=== PATIENT | female | born 1990 | race Caucasian/White ===

== ENCOUNTER 2020-04-20 21:40 | Inpatient (IN) ==
[2020-04-21] MEDS ORDERED: OXYTOCIN 30 UNITS/500 ML BAG IV PRN ×2 (00:16→05:13)
[2020-04-21] MEDS ORDERED: LACTATED RINGER'S 1,000 ML IV PRN (00:16)
[2020-04-21 00:47] LABS: Hematocrit (blood only) 37.1 % (37-47); Hemoglobin 13.2 g/dL (12.0-16.0); Mean Corpuscular Hemoglobin 33.2 pg (25-34); Mean Corpuscular Hgb Conc 35.6 g/dL (32-36); Mean Corpuscular Volume 93.5 fL (80-100); Platelet Count 179 K/uL (130-400); RDW Coefficient of Variation 13.2 % (11.5-14.5); RDW Standard Deviation 45.6 fL (36.4-46.3); Red Blood Count 3.97 M/uL (4.2-5.4); White Blood Count 13.26 K/uL (4.8-10.8)
[2020-04-21] MEDS ORDERED: SODIUM CHLORIDE 0.9% INJ 10 ML VIAL ONE (01:08)
[2020-04-21] MEDS ORDERED: BUPIVACAINE 0.25% 30 ML VIAL ONE (01:08)
[2020-04-21] MEDS ORDERED: ePHEDrine sulfate 50 MG/ML AMP ONE (01:08)
[2020-04-21] MEDS ORDERED: fentaNYL 2MCG/ML ROPIVACAINE 1.25MG/ML 100 ML BAG EPI ONE (01:09)
[2020-04-21] MEDS ORDERED: fentaNYL citrate 100 MCG/2 ML VIAL ONE (01:09)
[2020-04-21] MEDS ORDERED: diphenhydrAMINE 50 MG/ML VIAL IV PRN (02:10)
[2020-04-21] MEDS ORDERED: ePHEDrine sulfate 50 MG/ML AMP IV PRN (02:10)
[2020-04-21] MEDS ORDERED: NALOXONE HCL 1 MG in SODIUM CHLORIDE 0.9% 1000ML 1,000 ML IV PRN (02:10)
[2020-04-21] MEDS ORDERED: NALOXONE HCL 0.4 MG/1 ML VIAL/CARP IV PRN (02:10)
[2020-04-21] MEDS ORDERED: fentaNYL 2MCG/ML ROPIVACAINE 1.25MG/ML 100 ML BAG EPI PRN (02:10)
[2020-04-21] MEDS ORDERED: ONDANSETRON INJ 2 MG/ML 2 ML VIAL IV PRN (02:10)
[2020-04-21] MEDS ORDERED: PROMETHAZINE HCL 6.25 MG in SODIUM CHLORIDE 0.9% 50 ML IV PRN (02:10)
--- NOTE | 2020-04-21 02:10 | Anesthesiology Consultation ---
Date of Service April 21, 2020 Assessment & Plan (1) Encounter for pre-operative examination: Chart Review Chart Review: Patient NOT seen in Pre Admission Testing and Acceptable Risk for Labor Epidural Consults Requested none ASA ASA2 Proposed Anesthesia Anesthesia Type: Labor Epidural Risk / Benefits Reviewed With: PT / POA / Parent / Guardian, Accepts Plan and Informed Consent Obtained History Height/Weight Height: 5 ft 5 in Weight: 82.554 kg Allergies Allergy/AdvReac Type Severity Reaction Status Date / Time No Known Drug Allergies Allergy Unknown Verified 04/20/20 22:26 Medications Home Medications Medication Instructions Recorded Confirmed Last Taken prenat.vits,benny,tyj-vbly-azcqc 1 tab PO DAILY 09/05/19 04/20/20 04/20/20 08:00 Active Medications Generic Name Dose Route Start Last Admin Trade Name Freq PRN Reason Stop Dose Admin Lactated Ringer's 1,000 mls @ 125 mls/hr 04/21/20 00:16 04/21/20 01:40 Lr IV 04/23/20 00:15 125 mls/hr .Q8H PRN Infusion L&D Protocol Protocol NPO Date Last Intake of Fluids: 04/21/20 Time Last Intake of Fluids: 01:00 Date Last Intake of Solids: 04/20/20 Time Last Intake of Solids: 21:00 Past Medical History Medical History Hx of abnormal cervical Pap smear Hx of varicella Exercise / Class Metabolic Activity II 4-5 Yardwork/Stairs/Walk up hill Past Family History Family History Other No pertinent family history Past Surgical History Surgical History S/P LEEP Past Anesthesia History No Hx of Anesthesia Complications and No Family Hx of Anesthesia Complications History of PONV No Hx of PONV and No Hx of Motion Sickness Social History Smoking Status: Never smoker Hx Alcohol Use: No Hx Substance Use: No Physical Exam Vital Signs Last Vital Signs Temp 36.8 C 04/21/20 02:00 Pulse 88 04/21/20 02:08 Resp 20 04/21/20 02:05 BP 108/59 L 04/21/20 02:08 Pulse Ox 96 04/21/20 02:06 ENMT Mouth: no dentition abnormality Thyromental Distance: > or= 3.5 Finger Breadths Mallampati Class: II Neck normal visual inspection Respiratory normal respiratory effort Auscultation: lungs clear to auscultation bilaterally Cardiovascular Rate/Rhythm: regular rate and regular rhythm Psychiatric Orientation: alert Testing Laboratory Results 04/21/20 00:40
--- NOTE | 2020-04-21 03:22 | History & Physical Report ---
Date of Service April 21, 2020 Assessment & Plan (1) with 39 completed weeks gestation: (2) Normal labor: Admission and Anticipated Discharge Date Admission Date: April 21, 2020 Patient was admitted and eventually received epidural. Had srom with mec stained fluid. Making spontaneous progress. Plan expectant management. pitocin if indicated. fetus category one. anticipate . History of Present Illness Chief Complaint: contractions Primary Care Provider: NO PCP Patient is a at 39 5/7 weeks who presents to labor and delivery complaining of contractions. no lof/vb. +fm. Last seen in the office yesterday and cx not checked. checked two weeks ago and closed. uncomplicated. Labs--O+/ab-/ri/rprnr/hepb-/hiv-/gc/ct-/cf/sma-/panorama low risk/ gbs neg/gtt at 16 nl/ 28 week 2 hr gtt neg. Allergies Allergy/AdvReac Type Severity Reaction Status Date / Time No Known Drug Allergies Allergy Unknown Verified 04/20/20 22:26 Home Medications Medication Instructions Recorded Confirmed Type prenat.vits,benny,ogb-bpjf-jqhnr 1 tab PO DAILY 09/05/19 04/20/20 History Patient History Medical History Hx of abnormal cervical Pap smear Hx of varicella Surgical History S/P LEEP Family History Other No pertinent family history Social History (Updated 09/05/19 @ 15:11 by Lourdes Mao) Smoking Status: Never smoker Hx Alcohol Use: No Hx Substance Use: No Preferred Language: Luxembourgish Communication Ability: Effective Beliefs That Will Affect Care: None marital status: marital status details: Pedro Pablo Miranda (30) [phone] Current Living Situation: Spouse Current Living Situation Comment: lives with spouse and 2 dogs current occupational status: employed current occupation: [employer] Other Information That Helps Us Care for You: No Feels Safe at Home: Yes Safety Concerns: Feels Safe At This Time Assistive Devices: None 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 Review of Systems All systems reviewed & are unremarkable except as noted in HPI & below Physical Exam Constitutional: WD/WN, vitals as above Gastrointestinal (Abdomen): soft, gravid, nt Psychiatric: A+Ox3, euthymic affect Genitourinary: cx--initial exam by nursing and changed to , progressed to srom--mec toco--q3min efm--145 with mod variability, early decels with some contractions. Results & Data ([facility]) Vital Signs (Past 12 Hours) Vital Signs Temp Pulse Resp BP Pulse Ox 04/21/20 03:16 87 94 04/21/20 03:15 78 108/58 L 04/21/20 03:11 82 92 04/21/20 03:06 76 93 04/21/20 03:01 74 93 04/21/20 02:59 86 110/56 L 04/21/20 02:56 76 93 04/21/20 02:51 75 94 04/21/20 02:46 80 94 04/21/20 02:45 83 114/60 04/21/20 02:41 91 H 94 04/21/20 02:36 83 94 04/21/20 02:31 83 94 04/21/20 02:29 83 20 111/63 04/21/20 02:26 76 97 04/21/20 02:25 36.8 C 04/21/20 02:21 80 96 04/21/20 02:16 84 96 04/21/20 02:15 20 04/21/20 02:14 83 109/55 L 04/21/20 02:11 85 96 04/21/20 02:10 36.9 C 20 04/21/20 02:08 88 108/59 L 04/21/20 02:06 86 96 04/21/20 02:05 20 04/21/20 02:01 89 115/55 L 96 04/21/20 02:00 36.8 C 20 04/21/20 01:59 92 H 111/55 L 04/21/20 01:57 88 126/61 04/21/20 01:56 95 H 97 04/21/20 01:55 85 20 139/62 04/21/20 01:53 102 H 139/79 89 L 04/21/20 01:51 104 H 132/71 87 L 04/21/20 01:46 95 H 126/74 93 04/21/20 01:23 233 H 67 L 04/21/20 01:00 20 04/20/20 22:58 36.7 C 20 04/20/20 22:57 78 118/64 04/20/20 21:55 37.1 C 04/20/20 21:49 77 130/70 Coding Level of Care Code None Diagnoses with 39 completed weeks gestation Z3A.39 Normal labor O80; Z37.9
--- NOTE | 2020-04-21 03:39 | Labor Progress Brief Note ---
Date of Service April 21, 2020 Subjective comfortable Assessment & Plan (1) Normal labor: Admission and Anticipated Discharge Date Admission Date: April 21, 2020 begin second stage. fetus reassuring. anticipate . Physical Exam Constitutional: WD/WN, vitals as above Psychiatric: A+Ox3, euthymic affect Genitourinary: cx--c/c/+1-2 toco--q2-3min efm--145 with mod variability, early/variable with contractions Results & Data ([facility]) Vital Signs (Past 12 Hours) Vital Signs Temp Pulse Resp BP Pulse Ox 04/21/20 03:36 96 H 96 04/21/20 03:31 80 94 04/21/20 03:29 81 107/58 L 04/21/20 03:26 76 94 04/21/20 03:21 79 94 04/21/20 03:16 87 94 04/21/20 03:15 78 108/58 L 04/21/20 03:11 82 92 04/21/20 03:06 76 93 04/21/20 03:01 74 93 04/21/20 02:59 86 110/56 L 04/21/20 02:56 76 93 04/21/20 02:51 75 94 04/21/20 02:46 80 94 04/21/20 02:45 83 114/60 04/21/20 02:41 91 H 94 04/21/20 02:36 83 94 04/21/20 02:31 83 94 04/21/20 02:29 83 20 111/63 04/21/20 02:26 76 97 04/21/20 02:25 36.8 C 04/21/20 02:21 80 96 04/21/20 02:16 84 96 04/21/20 02:15 20 04/21/20 02:14 83 109/55 L 04/21/20 02:11 85 96 04/21/20 02:10 36.9 C 20 04/21/20 02:08 88 108/59 L 04/21/20 02:06 86 96 04/21/20 02:05 20 04/21/20 02:01 89 115/55 L 96 04/21/20 02:00 36.8 C 20 04/21/20 01:59 92 H 111/55 L 04/21/20 01:57 88 126/61 04/21/20 01:56 95 H 97 04/21/20 01:55 85 20 139/62 04/21/20 01:53 102 H 139/79 89 L 04/21/20 01:51 104 H 132/71 87 L 04/21/20 01:46 95 H 126/74 93 04/21/20 01:23 233 H 67 L 04/21/20 01:00 20 04/20/20 22:58 36.7 C 04/20/20 22:57 78 118/64 04/20/20 21:55 37.1 C 04/20/20 21:49 77 130/70 Coding Level of Care Code None Diagnoses Normal labor O80; Z37.9
[2020-04-21] MEDS ORDERED: METHYLERGONOVINE MALEATE 0.2 MG/ML AMP ONE (04:56)
[2020-04-21] MEDS ORDERED: oxyCODONE/ACETAMINOPHEN 5mg/325mg TAB PO PRN (05:07)
[2020-04-21] MEDS ORDERED: ACETAMINOPHEN 325 MG TAB PO PRN (05:07)
--- NOTE | 2020-04-21 05:12 | Delivery Summary ---
Vaginal Delivery Summary Date of Service April 21, 2020 Pre-operative Diagnosis: at 39 weeks normal labor Post-operative Diagnosis: same meconium Procedure: epidural second degree lac and repair EBL: 400cc Anesthesia: epidural Procedure: The patient pushed for 50 min to deliver a viable female in nita position. The nose and mouth were bulb suctioned on the perineum and the rest of the infant was then delivered without difficulty. The baby was vigorous. The nose and mouth were again bulb suctioned and the was placed in the maternal abdomen for drying and attention. Cord was clamped and cut at one minute of life. Cord blood and segment obtained. Placenta delivered spontaneous, intact with a three vessel cord. Cervix/sulci/rectum were intact. A second degree perineal laceration was repaired in the normal standard fashion. Hemostasis obtained with dilute pitocin, IM methergine and fundal massage. Apgars were 8/9. Mother and baby doing well at the end of the delivery. Vaginal Delivery Summary and 2nd [place] [facility] [place] Charge Delivery Type Details: and 2nd Degree LAC
[2020-04-21] MEDS ORDERED: bisacodyL 10 MG SUPP PR PRN (05:13)
[2020-04-21] MEDS ORDERED: HYDROCORTISONE ACETATE 25 MG SUPP PR PRN (05:13)
[2020-04-21] MEDS ORDERED: DIPHTHERIA/TETANUS/PERTUSSIS 0.5 ML SYR/VIAL IM ONE (05:13)
[2020-04-21] MEDS ORDERED: BENZOCAINE 20% AER SPR 82.5 GM CAN EXT PRN (05:13)
[2020-04-21] MEDS ORDERED: METHYLERGONOVINE MALEATE 0.2 MG/ML AMP IM ONE (05:13)
[2020-04-21] MEDS ORDERED: SUPERCREAM 0.870% 15 GM JAR EXT PRN (05:13)
[2020-04-21] MEDS: IBUPROFEN 600 MG TAB PO PRN ×4 (06:10→21:56)
[2020-04-21] MEDS: PRENATAL VITAMIN 1 TAB PO SCH (08:08)
[2020-04-21] MEDS: DOCUSATE SODIUM 100 MG CAP PO SCH ×2 (08:08→21:56)
--- NOTE | 2020-04-21 08:20 | Anesthesia Procedure Note ---
Date of Service April 21, 2020 Anesthesia Post Epidural Note Vital Signs Vital Signs: Temp Pulse Resp BP Pulse Ox 36.7 C 93 H 20 96/55 L 94 04/21/20 03:55 04/21/20 06:59 04/21/20 06:59 04/21/20 06:59 04/21/20 04:51 Notes Mental Status: alert / awake / arousable and participated in evaluation Nausea / Vomiting: adequately controlled Pain: adequately controlled Airway Patency, RR, SpO2: stable & adequate BP & HR: stable & adequate Hydration State: stable & adequate Neuraxial Anesthesia: was administered and sensory block is resolving Anesthetic Complications: no major complications apparent and Pt Satisfied with anesthetic care Epidural: Removed without complications and With tip intact Notes: Epidural site clean, dry and intact. No signs of edema, erythema or bruising at insertion site. Pt instructed to request anesthesia if she has residual lower extremity numbness or if she develops lower extremity pain or weakness, back pain or headache.
[2020-04-22] MEDS: IBUPROFEN 600 MG TAB PO PRN ×3 (05:48→21:00)
[2020-04-22 06:27] LABS: Hematocrit (blood only) 35.7 % (37-47)
--- NOTE | 2020-04-22 06:35 | Obstetrical Progress Note ---
Date of Service April 22, 2020 Assessment & Plan (1) with 39 completed weeks gestation: day #1 the patient is doing well ambulating well we discussed possible discharge later in the evening versus tomorrow morning Subjective Ambulation: ambulating normally Voiding: no voiding problems Passing Gas:: Yes Diet Tolerance:: regular diet Lochia:: Small Feeding Type:: breast feeding Current Pain Level(1-10): 2 Physical Exam Constitutional WD/WN, vitals as above Genitourinary normal external appearance ext neg Results & Data ([facility]) Vital Signs (Past 12 Hours) Vital Signs Temp Pulse Resp BP Pulse Ox 04/22/20 03:50 97.9 F 76 18 113/72 04/21/20 23:15 98.4 F 79 18 102/72 04/21/20 19:45 97.7 F 81 18 114/67 97
[2020-04-22] MEDS: PRENATAL VITAMIN 1 TAB PO SCH (08:16)
[2020-04-22] MEDS: DOCUSATE SODIUM 100 MG CAP PO SCH ×2 (08:16→21:00)
[2020-04-22] MEDS ORDERED: bisacodyL 5 MG TABEC PO SCH (20:00)
[2020-04-23] MEDS: IBUPROFEN 600 MG TAB PO PRN ×2 (00:45→08:20)
--- NOTE | 2020-04-23 07:42 | Obstetrical Progress Note ---
Date of Service <Mela Dolores Auguste DO - Last Filed: 04/23/20 07:42> April 23, 2020 Assessment & Plan <Mela Dolores Auguste DO - Last Filed: 04/23/20 07:42> (1) state: PPD #2 - PNL: Rh pos, RI, GBS neg, COVID neg - Feels well today. Eating well, voiding well, ambulating well. - Pain well controlled with ibuprofen 600mg Q4H PRN - Routine care -- OOB, ambulation, diet progression as tolerated - After discharge will have 6 week follow-up with Dr. Salcido. - Plan for d/c home today. Subjective <Melasilva Auguste DO - Last Filed: 04/23/20 07:42> Ale Miranda is a 29 y/o female who is PPD #2 following spontaneous vaginal delivery at 39 +5 weeks. She reports feeling well overall this morning. Minimal abdominal cramping and 2/10 pain well managed on analgesics. Voiding without dysuria. Tolerating meals overnight without difficulty. Patient has been able to ambulate some. She is passing gas; no bowel movement. Has persistent lochia with some improvement this morning. Currently . Patient does note a slight headache behind her right eye, slightly exacerbated with laying supine; controlled with Tylenol and Motrin; similar to hx of headaches. Review of Systems Denies fever or chills. Denies shortness of breath or cough. Denies chest pain. Denies breast pain. Denies dysuria. Denies leg pain or leg swelling. Denies headache or changes in vision. Physical Exam <Mela Auguste DO - Last Filed: 04/23/20 07:42> General: Alert, oriented. No acute distress. Cardiac: Regular rate and rhythm. No murmurs. Respiratory: Clear to auscultation bilaterally a/p, no wheezes/rales/rhonchi. No increased work of breathing. Symmetrical chest rise. No respiratory distress. Abdomen: Soft, nontender, nondistended. Bowel sounds present. Uterus: Uterine fundus firm, palpable 2 cm below umbilicus. Lower Extremities: No lower extremity edema or swelling. No deep calf pain. Estrella's negative bilaterally. Results & Data ([facility]) <Mela Auguste DO - Last Filed: 04/23/20 07:42> Vital Signs (Past 12 Hours) Vital Signs Temp Pulse Resp BP Pulse Ox 04/22/20 23:15 36.7 C 79 18 111/75 96 <Ulysses Pro MD - Last Filed: 04/23/20 08:20> Co-Signing Physician Notes Patient seen and evaluated and agree with the above findings and plan. Doing well. Stable for discharge. Resident Activity Tracking <Mela Auguste DO - Last Filed: 04/23/20 07:42> Resident Involvement: Resident Care Provided Care Provided: OB Delivery
[2020-04-23] MEDS: PRENATAL VITAMIN 1 TAB PO SCH (08:17)
[2020-04-23] MEDS: DOCUSATE SODIUM 100 MG CAP PO SCH (08:17)
== END 2020-04-23 11:39 | disposition home or self-care (01) | DRG 807 ==
LOC: OPB 21:40 → 4S1 21:41 → 4S2 04-21 07:22

== ENCOUNTER 2023-08-14 08:57 | Inpatient (IN) ==
[2023-08-14] MEDS ORDERED: LIDOCAINE 1% LOCAL 20 ML VIAL INFIL PRN (09:35)
--- NOTE | 2023-08-14 09:41 | History & Physical Report ---
Date of Service August 14, 2023 Assessment & Plan (1) Group B streptococcal infection during : (2) Encounter for supervision of normal in multigravida: Plan 32 yo at 39 3/7 wga presents in labor VSS Fetus cat 1 Labor - augment prn GBS+, will start pcn desires epidural History of Present Illness Chief Complaint: ctx Primary Care Provider: Harrison Cordero DO 32 yo at 39 3/7 wga presents w/ ctx increasing in frequency and intensity. Started around 430 and then around 6am got q5m. Denies LOF, VB. 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 current hx LEEP denies hx stis Allergies Allergy/AdvReac Type Severity Reaction Status Date / Time No Known Drug Allergies Allergy Unknown Verified 08/07/23 13:40 Home Medications Medication Instructions Recorded Confirmed Type vit no.95-ferrous 1 tab PO DAILY 08/14/23 08/14/23 History fumarate 28 mg-folic acid 800 mcg tablet () Patient History Medical History (Updated 07/26/23 @ 13:14 by Palma Wheatley RN) Seasonal allergies History of chicken pox Hx of abnormal cervical Pap smear Surgical History (Updated 08/14/23 @ 09:13 by Roya Mejia RN) S/P loop electrosurgical excision procedure H/O eye surgery laser for glaucoma H/O bilateral breast implants S/P cryotherapy of skin lesion cervix for dysplasia Family History Grandmother (Maternal) Throat cancer Mother Zechariah's disease Father Healthy adult male Other No pertinent family history Denies family history of Ovarian cancer Prostate cancer Breast cancer Colorectal cancer Social History (Updated 01/01/23 @ 09:56 by Fabiana Galvez) Smoking Status: Never smoker Do You Dip or Chew Tobacco: No; Hx Alcohol Use: No Hx Substance Use: No Preferred Language: Ugandan Communication Ability: Effective Visual Impairment: No Limitations Beliefs That Will Affect Care: None marital status: marital status details: Pedro Pablo Miranda (33) [phone] Current Living Situation: Spouse and Family Current Living Situation Comment: lives with spouse, child and 2 dogs current occupational status: employed 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 Feels Safe at Home: Yes Assistive Devices: None Physical Exam Genitourinary: OB Exam Abdomen: + vertex and + estimated weight (8-9) Manual OB Exam: + cervical dilation (4-5), + cervical effacement 90% and + station -2 OB Exam Monitor Tracing: + external FHT monitor used, + external uterine monitor used (q3-4) and + category I (140-145/mod/+accel/-decel) Results & Data Vital Signs (Past 12 Hours) Vital Signs Temp Pulse Resp BP 08/14/23 09:26 83 101/61 08/14/23 09:07 20 08/14/23 09:07 98.2 F 20 Laboratory Results OB Labs: Blood Type O Positive 01/08/23 Antibody Screen NEGATIVE 01/08/23 Hemoglobin 11.7 g/dl (12.0-16.0) L 05/23/23 Hematocrit 33.3 % (37.0-47.0) L 05/23/23 Mean Corpuscular Volume 89.0 fL (80.0-100.0) 01/08/23 Platelet Count 271 K/uL (130-400) 01/08/23 Rubella IgG Antibody Immune (Immune) 01/08/23 Rapid Plasma Reagin Nonreactive (Nonreactive) 01/08/23 Hepatitis B Surface Antigen Neg (Neg) 09/09/19 Hepatitis B Surface Antigen. NON-REACTIVE (NON-REACTIVE) 01/08/23 Hepatitis C Antibody (EIA) NON-REACTIVE (NON-REACTIVE) 01/08/23 HIV (1&2) Ab and P24 Ag, 4th Gener Neg (Neg) 09/09/19 HIV (1&2) Ag and Ab Confirmation NON-REACTIVE (NON-REACTIVE) 01/08/23 Glucose 1 Hour 50 gm Load 132 mg/dl (70-130) H 01/30/20 Maternal Serum Alpha Fetoprotein 29.9 ng/mL 03/06/23 OB Optional Labs: Chlamydia trachomatis RNA Not Detected (NotDetected) 01/08/23 Neisseria gonorrhoeae RNA Not Detected (NotDetected) 01/08/23 Thyroid Stimulating Hormone (TSH) 2.615 uIu/ml (0.300-4.500) 07/04/23 Alpha Fetoprotein Triple Screen SEE NOTE 03/06/23 Labs Reviewed: (-) CF/SMA last Horizon 14-negative--mln cfdna-low risk--mln afp neg--akh GBS+ Diagnostic Findings post plac Coding Level of Care Code None Diagnoses Group B streptococcal infection during O98.819; B95.1 Encounter for supervision of normal in multigravida Z34.80
[2023-08-14] MEDS: LACTATED RINGER'S 1,000 ML IV PRN (09:46)
[2023-08-14] MEDS: PENICILLIN GK 6 MU in DEXTROSE 5% 250 ML IV STA (10:08)
[2023-08-14 10:15] LABS: Hematocrit (blood only) 35.9 % (37.0-47.0); Hemoglobin 12.4 g/dl (12.0-16.0); Mean Corpuscular Hemoglobin 32.4 pg (25.0-34.0); Mean Corpuscular Hgb Conc 34.5 g/dL (32.0-36.0); Mean Corpuscular Volume 93.7 fL (80.0-100.0); Mean Platelet Volume 11.1 fL (9.4-12.4); Platelet Count 163 K/uL (130-400); RDW Coefficient of Variation 13.2 % (11.5-14.5); RDW Standard Deviation 45.6 fL (36.4-46.3); Red Blood Count 3.83 M/uL (4.20-5.40); White Blood Count 11.15 K/ul (4.8-10.8)
--- NOTE | 2023-08-14 10:29 | Anesthesiology Consultation ---
Date of Service August 14, 2023 Assessment & Plan Chart Review Chart Review: Acceptable Risk for Labor Epidural Consults Requested none ASA ASA2 Proposed Anesthesia Anesthesia Type: Labor Epidural Risk / Benefits Reviewed With: PT / POA / Parent / Guardian, Accepts Plan and Informed Consent Obtained History Allergies Allergy/AdvReac Type Severity Reaction Status Date / Time No Known Drug Allergies Allergy Unknown Verified 08/07/23 13:40 Medications Home Medications Medication Instructions Recorded Confirmed Last Taken vit no.95-ferrous 1 tab PO DAILY 08/14/23 08/14/23 08/12/23 09:00 fumarate 28 mg-folic acid 800 mcg tablet () Active Medications Generic Name Dose Route Start Last Admin Trade Name Freq PRN Reason Stop Dose Admin Lactated Ringer's 1,000 mls @ 125 mls/hr 08/14/23 09:35 08/14/23 09:46 Lr IV 08/16/23 09:34 999 mls/hr .Q8H PRN Administration L&D Protocol Protocol Past Medical History Medical History Seasonal allergies History of chicken pox Hx of abnormal cervical Pap smear Exercise / Class Metabolic Activity II 4-5 Yardwork/Stairs/Walk up hill Past Family History Family History Grandmother (Maternal) Throat cancer Mother Zechariah's disease Father Healthy adult male Other No pertinent family history Denies family history of Ovarian cancer Prostate cancer Breast cancer Colorectal cancer Past Surgical History Surgical History S/P loop electrosurgical excision procedure H/O eye surgery laser for glaucoma H/O bilateral breast implants S/P cryotherapy of skin lesion cervix for dysplasia Past Anesthesia History No Hx of Anesthesia Complications and No Family Hx of Anesthesia Complications History of PONV No Hx of PONV and No Hx of Motion Sickness Social History Smoking Status: Never smoker Do You Dip or Chew Tobacco: No Hx Alcohol Use: No Hx Substance Use: No Physical Exam Vital Signs Last Vital Signs Temp 98.2 F 08/14/23 09:07 Pulse 83 08/14/23 09:26 Resp 20 08/14/23 09:07 BP 101/61 08/14/23 09:26 ENMT Mouth: no dentition abnormality Thyromental Distance: > or= 3.5 Finger Breadths Mallampati Class: II Neck normal visual inspection Respiratory normal respiratory effort Auscultation: lungs clear to auscultation bilaterally Cardiovascular Rate/Rhythm: regular rate and regular rhythm Testing Laboratory Results 08/14/23 09:45
[2023-08-14] MEDS ORDERED: SODIUM CHLORIDE 0.9% PF INJ 10 ML VIAL EPI PRN (10:55)
[2023-08-14] MEDS ORDERED: NALBUPHINE HCL 5 MG in SYRINGE 0 ML IV PRN (10:55)
[2023-08-14] MEDS ORDERED: NALOXONE HCL 0.4 MG/1 ML VIAL/CARP IV PRN (10:55)
[2023-08-14] MEDS ORDERED: NALOXONE HCL 1 MG in SODIUM CHLORIDE 0.9% 1,000 ML IV PRN (10:55)
[2023-08-14] MEDS ORDERED: diphenhydrAMINE 50 MG/ML VIAL IV PRN (10:55)
[2023-08-14] MEDS ORDERED: ePHEDrine sulfate 50 MG/ML AMP IV PRN (10:55)
[2023-08-14] MEDS ORDERED: fentaNYL citrate PF 100 MCG/2 ML VIAL EPI PRN (10:55)
[2023-08-14] MEDS ORDERED: BUPIVACAINE 0.25% PF 30 ML VIAL EPI PRN (10:55)
[2023-08-14] MEDS ORDERED: LIDOCAINE 2% MPF LOCAL 5 ML VIAL EPI PRN (10:55)
[2023-08-14] MEDS ORDERED: ROPIVACAINE 0.5% PF 5 MG/ML 20 ML VIAL EPI PRN (10:55)
[2023-08-14] MEDS: LIDOCAINE 2%/EPINEPHRINE 1:200,000 20 ML PF ONE (10:59)
[2023-08-14] MEDS: fentANYL 2 MCG/ML BUPIVacaine 0.125%-NSS 100ML BAG ONE (11:00)
[2023-08-14] MEDS: BUPIVACAINE 0.25% PF 30 ML VIAL ONE (11:00)
[2023-08-14] MEDS ORDERED: NURSING L&D Epidural Breakthrough Pain Update ONE (11:25)
[2023-08-14] MEDS: fentaNYL citrate PF 100 MCG/2 ML VIAL ONE (12:02)
[2023-08-14] MEDS: ePHEDrine sulfate 50 MG/ML AMP ONE (12:02)
[2023-08-14] MEDS: BUPIVACAINE 0.25% PF 30 ML VIAL EPI STA (12:03)
[2023-08-14] MEDS: fentaNYL citrate PF 100 MCG/2 ML VIAL EPI STA (12:03)
[2023-08-14] MEDS: SODIUM CHLORIDE 0.9% PF INJ 10 ML VIAL ONE (12:03)
[2023-08-14] MEDS: LIDOCAINE 2%/EPINEPHRINE 1:200,000 20 ML PF EPI STA (12:03)
[2023-08-14] MEDS: SODIUM CHLORIDE 0.9% PF INJ 10 ML VIAL EPI STA (12:03)
[2023-08-14] MEDS: PENICILLIN GK 3 MU in DEXTROSE 5% 100 ML IV PRN (13:50)
--- NOTE | 2023-08-14 14:22 | Labor Progress Brief Note ---
Date of Service August 14, 2023 Subjective comfortable w/ epidural Assessment & Plan (1) Group B streptococcal infection during : (2) Encounter for supervision of normal in multigravida: Plan 32 yo at 39 3/7 wga presents in labor VSS Fetus cat 1 Labor - s/p arom, pit prn GBS+, pcn ordered epidural in place Admission and Anticipated Discharge Date Admission Date: August 14, 2023 Physical Exam Genitourinary: Manual OB Exam: + cervical dilation (6-7), + cervical effacement 90%, + station -1 and + amniotic fluid (arom) OB Exam Monitor Tracing: + external FHT monitor used, + external uterine monitor used (q3-5) and + category I (120/mod/+accel/-decel) Results & Data Vital Signs (Past 12 Hours) Vital Signs Temp Pulse Resp BP Pulse Ox 08/14/23 14:17 62 99 08/14/23 14:12 68 99 08/14/23 14:08 68 103/59 L 08/14/23 14:07 63 99 08/14/23 14:02 63 100 08/14/23 14:00 67 94/53 L 08/14/23 13:57 75 99 08/14/23 13:55 74 85/54 L 08/14/23 13:53 76 89/53 L 08/14/23 13:52 71 97/57 L 99 08/14/23 13:47 82 98 08/14/23 13:42 67 100 08/14/23 13:37 65 90/50 L 99 08/14/23 13:32 68 100 08/14/23 13:27 65 100 08/14/23 13:22 68 99 08/14/23 13:17 70 97 08/14/23 13:12 62 96 08/14/23 13:07 73 98 08/14/23 13:06 73 84/54 L 08/14/23 13:02 78 98 08/14/23 12:57 87 98 08/14/23 12:53 63 89/55 L 08/14/23 12:52 62 97 08/14/23 12:46 63 97 08/14/23 12:42 70 97 08/14/23 12:37 86 97 08/14/23 12:36 82 84/53 L 08/14/23 12:32 69 96 08/14/23 12:27 70 96 08/14/23 12:22 60 94/57 L 08/14/23 12:21 65 95 08/14/23 12:16 73 96 08/14/23 12:12 76 95 08/14/23 12:09 68 94 08/14/23 12:07 69 95 08/14/23 12:06 67 95/54 L 08/14/23 12:02 66 94 08/14/23 12:00 68 94 08/14/23 11:57 77 95 08/14/23 11:53 77 94 08/14/23 11:52 71 95 08/14/23 11:47 66 100/56 L 95 08/14/23 11:46 67 94 08/14/23 11:42 68 08/14/23 11:42 71 91/54 L 95 08/14/23 11:39 71 94 08/14/23 11:37 76 94 08/14/23 11:36 92/54 L 08/14/23 11:33 68 94 08/14/23 11:32 75 94 08/14/23 11:31 71 95/52 L 08/14/23 11:28 78 94 08/14/23 11:27 68 103/62 95 08/14/23 11:22 71 96 08/14/23 11:21 61 87/51 L 08/14/23 11:17 69 08/14/23 11:17 69 90/54 L 95 08/14/23 11:12 71 95 08/14/23 11:10 73 87/49 L 08/14/23 11:08 90/54 L 08/14/23 11:07 72 96 08/14/23 11:06 75 87/49 L 08/14/23 11:04 80 93/51 L 08/14/23 11:02 94 08/14/23 11:02 75 08/14/23 11:02 74 88/50 L 95 08/14/23 11:00 77 95/51 L 08/14/23 10:58 82 90/55 L 08/14/23 10:57 78 08/14/23 10:57 78 90/51 L 96 08/14/23 10:56 80 82/46 L 08/14/23 10:55 81 93/51 L 08/14/23 10:53 76 116/54 L 08/14/23 10:52 80 97 08/14/23 10:50 77 101/61 08/14/23 10:48 76 102/63 08/14/23 10:47 83 96 08/14/23 10:46 84 110/65 08/14/23 10:44 91 H 109/65 08/14/23 10:42 82 109/66 97 08/14/23 10:37 86 99 08/14/23 10:32 82 99 08/14/23 09:26 83 101/61 08/14/23 09:12 98.2 F 20 08/14/23 09:07 20 08/14/23 09:07 98.2 F 20 Coding Level of Care Code None Diagnoses Group B streptococcal infection during O98.819; B95.1 Encounter for supervision of normal in multigravida Z34.80
[2023-08-14] MEDS: ONDANSETRON INJ 2 MG/ML 2 ML VIAL IV PRN (15:02)
[2023-08-14] MEDS: fentANYL 2 MCG/ML BUPIVacaine 0.125%-NSS 100ML BAG EPI PRN (16:35)
[2023-08-14] MEDS: OXYTOCIN 30 UNITS/NSS 30 UNITS/500 ML BAG IV PRN (17:53)
--- NOTE | 2023-08-14 18:07 | Delivery Summary ---
Vaginal Delivery Summary Date of Service August 14, 2023 Vaginal Delivery Summary and 2nd Degree LAC PREOPERATIVE DIAGNOSIS: 1. Single intrauterine at 39 3/7 2. Labor 3. GBS+ POSTOPERATIVE DIAGNOSIS: 1. Single intrauterine at 39 3/7 2. Labor 3. GBS+ 4. Delivered PROCEDURE: 1. Normal spontaneous vaginal delivery. SURGEON: Syl Salvador MD ANESTHESIA: Epidural. QUANTITATIVE BLOOD LOSS: 200 mL FLUIDS: Continuous LR. URINE OUTPUT: None. COMPLICATIONS: None. CONDITION: Stable. INDICATIONS: 32 yo at 39 3/7 wga presented due to contractions this morning and found to be 4-5cm. She was started on penicillin for pain control and received an epidural for pain control. She underwent arom and continued to progress spontaneously until she progressed to complete and desired to push. FINDINGS: A viable female infant, weight pending with Apgars of 8 and 9 at 1 and 5 minutes respectively. SPECIMEN: Cord blood OPERATIVE REPORT: The patient progressed to 10 cm, 100% effaced and +2 station, pushed over intact perineum with anesthesia to deliver a viable male , weight and Apgars as above. Head of delivered in PAM position. No nuchal cord was present. Body and shoulders were delivered without difficulty. was delivered to maternal abdomen and nursing staff. Delayed cord clamping was performed for 60 seconds. Cord was clamped and cut. Cord blood was obtained. Placenta delivered spontaneously intact with 3-vessel cord. IV oxytocin and fundal massage were given for excellent hemostasis. Vagina, cervix, perineum, and placenta were inspected. A second degree laceration was repaired using 3-0 vicryl, there was excellent hemostasis. Sponge and needle counts correct x2. No sponges were left behind. Mother and stable in immediate period. [facility] [place] Vaginal Delivery Charge Vaginal Delivery Codes: 31695 global code for the antepartum, delivery, and post- Delivery Type Details: and 2nd Degree LAC
[2023-08-14] MEDS ORDERED: ACETAMINOPHEN 325 MG TAB PO PRN (18:09)
[2023-08-14] MEDS ORDERED: HYDROCORTISONE ACETATE 25 MG SUPP PR PRN (18:09)
[2023-08-14] MEDS ORDERED: OXYTOCIN 30 UNITS/NSS 30 UNITS/500 ML BAG IV PRN (18:09)
[2023-08-14] MEDS: DIPHTHER/TETAN/PERTUS Vaccine (Tdap, Adol/Adult) 0.5mL IM ONE (18:24)
--- NOTE | 2023-08-14 19:22 | Anesthesia Procedure Note ---
Date of Service August 14, 2023 Anesthesia Post Epidural Note Vital Signs Vital Signs: Temp Pulse Resp BP Pulse Ox 98.1 F 71 16 95/52 L 98 08/14/23 15:15 08/14/23 18:51 08/14/23 15:15 08/14/23 18:51 08/14/23 17:47 Notes Mental Status: alert / awake / arousable and participated in evaluation Nausea / Vomiting: adequately controlled Pain: adequately controlled Airway Patency, RR, SpO2: stable & adequate BP & HR: stable & adequate Hydration State: stable & adequate Neuraxial Anesthesia: was administered and sensory block is resolving Anesthetic Complications: no major complications apparent and Pt Satisfied with anesthetic care Epidural: Removed without complications and With tip intact
[2023-08-14] MEDS: IBUPROFEN 600 MG TAB PO PRN (21:00)
[2023-08-14] MEDS: DOCUSATE SODIUM 100 MG CAP PO SCH (21:01)
--- NOTE | 2023-08-15 05:57 | Obstetrical Progress Note ---
Date of Service August 15, 2023 Assessment & Plan (1) Encounter for care and examination after delivery: Plan 32 y/o PPD#1 s/p Feels well today Vital signs reviewed Rubella immune, O+ Encourage ambulation and breast feeding Continue ob care Admission and Anticipated Discharge Date Admission Date: August 14, 2023 Supervising Physician Co-Signing Physician Notes Resident Physician Supervision Note: I interviewed and examined the patient. Discussed with Dr. Travis and agree with findings and plan as documented in the note. Any exceptions or clarifications are listed here: PP1 s/p , doing well. VSS, exam benign and wnl. Likely dc home tomorrow due to time of delivery, ok to dc this evening if desires Documented By: Syl Salvador MD Subjective 32 yo post- day 1 s/p Ambulation: ambulating normally Voiding: no voiding problems Passing Gas: Yes Diet Tolerance: regular diet Lochia:: Small Feeding Type: breast feeding Current Pain Level: mild Resting comfortably this AM in NAD. Denies [facility], CP, SOB, N/V/D, LE pain/swelling. Review of Systems Review of Systems: as per HPI Physical Exam Physical Exam: General: patient resting comfortably, NAD, non-toxic in appearance, AA&O x 4, answers questions appropriately. HEENT: NC/AT, anicteric sclera, conjunctiva without injection, moist mucus membranes. Heart: +S1/S2, regular, no m/r/g Lungs: equal air entry bilaterally, no rales/rhonchi/wheezes Abd: +BS, soft, NT/ND, uterine fundus firm at umbilicus Ext: warm, no clubbing/cyanosis or edema, Estrella's neg. Neuro: nonfocal, patient AA&O x 4, speech intact, no facial droop, moving all extremities on command. Results & Data Vital Signs (Past 12 Hours) Vital Signs Temp Pulse Pulse Resp BP BP Pulse Ox 08/15/23 04:00 36.6 C 62 16 90/57 L 97 08/15/23 00:30 36.8 C 72 16 96/59 L 97 08/14/23 20:40 36.8 C 67 16 101/63 98 08/14/23 19:51 78 08/14/23 19:51 88/53 L 08/14/23 19:50 36.8 C 18 08/14/23 19:36 100 H 08/14/23 19:36 86/50 L 08/14/23 19:25 82 08/14/23 19:25 99/54 L 08/14/23 19:20 18 08/14/23 18:51 71 08/14/23 18:51 95/52 L 08/14/23 18:36 70 93/52 L 08/14/23 18:21 77 95/55 L 08/14/23 18:07 86 99/52 L O2 Del Method 08/15/23 04:00 Room Air 08/15/23 00:30 Room Air 08/14/23 20:40 Room Air 08/14/23 19:51 08/14/23 19:51 08/14/23 19:50 08/14/23 19:36 08/14/23 19:36 08/14/23 19:25 08/14/23 19:25 08/14/23 19:20 08/14/23 18:51 08/14/23 18:51 08/14/23 18:36 08/14/23 18:21 08/14/23 18:07 Resident Activity Tracking Resident Involvement: Resident Care Provided Care Provided: OB Delivery
[2023-08-15] MEDS: FERROUS SULFATE 325 MG TAB PO SCH (09:10)
[2023-08-15] MEDS: BENZOCAINE 20% SPRY 85 APPLN/85 GM CAN EXT PRN (09:10)
[2023-08-15] MEDS: PRENATAL VITAMIN 1 TAB PO SCH (09:10)
[2023-08-15] MEDS: bisacodyL 5 MG TABEC PO SCH (20:03)
--- NOTE | 2023-08-16 05:59 | Coding Query ---
CODING QUERY To promote full compliance with coding requirements relating to patient care, provider participation is requested in all cases of brand advocate uncertainty. Please assist us with the question(s) below: Coding Question(s): Per the delivery summary: " Vagina, cervix, perineum, and placenta were inspected. A second degree laceration was repaired using 3-0 vicryl" Please specify the site of the patient's laceration. Patient's laceration is __perineal Physician's Response(s): Thank you Екатерина Watkins Principal Diagnosis: "that condition established after study, to be chiefly responsible for occasioning the admission of the patient to the hospital for care." Co-Existing Principal Diagnosis: "when two or more diagnoses equally meet the criteria for principal diagnosis as determined by the circumstances of admission, diagnostic work up, and/or therapy provided, and the Alphabetic Index, Tabular List, or another coding guideline does not provide sequencing direction, any one of the diagnoses may be sequenced first." "When the physician has documented what appears to be a current diagnosis in the body of the record, but has not included the diagnosis in the final diagnostic statement, the physician should be asked whether the diagnosis should be added." (Source Coding [facility] 2 QTR90. p3-4) LIZZY
[2023-08-16] MEDS ORDERED: bisacodyL 10 MG SUPP PR PRN (06:00)
== END 2023-08-15 19:50 | disposition home or self-care (01) | DRG 807 ==
LOC: OPB 08:57 → 4S1 09:01 → 4E2 20:50